=== PATIENT | male | born 1930 | race Caucasian/White ===

== ENCOUNTER 2020-01-04 16:18 | Emergency (ER) | payer MEDICARE, OTHER ==
[~2020-01-04] VITALS: Ht 180.3 cm; Wt 86.2 kg
[2020-01-04 19:35] VITALS: BP 150/71
[2020-01-04] MEDS ORDERED: TETANUS-DIPTH-ACEL PERTUSSIS 0.5ML SYRG IM ONE ×2 (19:42→19:45)
== END 2020-01-04 20:51 | disposition home or self-care (01) ==
LOC: ER 16:18
DX: S61.452A Open bite of left hand, initial encounter (principal); L03.114 Cellulitis of left upper limb; W54.0XXA Bitten by dog, initial encounter; Y93.89 Activity, other specified; Y92.89 Other specified places as the place of occurrence of the external cause; Y99.8 Other external cause status
CPT/HCPCS: 73130; 90471; 90715

== ENCOUNTER 2020-03-07 08:19 | Inpatient (IN) | payer MEDICARE, OTHER ==
[~2020-03-07] VITALS: Ht 177.8 cm; Wt 80.3 kg
[2020-03-07 08:55] LABS: Basophils # (auto) 0.1 10 ^3/uL (0-0.2); Basophils % (auto) 0.5 % (0.0-2.0); Eosinophils # (auto) 0 10 ^3/uL (0-0.8); Eosinophils % (auto) 0.1 % (0.0-7.0); Hematocrit 36.5 % (41.0-53.0); Hemoglobin 12.7 g/dL (13.5-17.5); Lymphocytes # (auto) 0.9 10 ^3/uL (0.4-5.4); Lymphocytes % (auto) 7.9 % (10.0-50.0); Mean Corpuscular Hemoglobin 31.6 pg (28.0-32.0); Mean Corpuscular Hgb Conc. 34.8 g/dL (32.0-36.0); Mean Corpuscular Volume 90.9 fL (80.0-100.0); Monocytes # (auto) 1.1 10 ^3/uL (0-1.3); Monocytes % (auto) 9.6 % (0.0-12.0); Neutrophils # (auto) 9.6 10 ^3/uL (1.6-8.6); Neutrophils % (auto) 81.9 % (37.0-80.0); Nucleated Red Blood Cells % 0.1 %; Platelet Count (auto) 203 10^3/uL (140-450); Red Blood Cells 4.02 10^6/uL (4.5-5.90); Red Cell Distribution Width 14.6 % (11.8-14.3); White Blood Cell 11.8 10^3/uL (4.4-10.8)
[2020-03-07 09:09] LABS: INR 1.04 (0.9-1.15)
[2020-03-07 09:23] LABS: Albumin 2.3 g/dL (3.4-5.0); BUN/Creatinine Ratio 16.7; Calcium 9.1 mg/dL (8.5-10.1); Potassium 3.4 mmol/L (3.5-5.1)
[2020-03-07 09:28] LABS: Bilirubin, Total 0.6 mg/dL (0.2-1.0); Total Protein 6.1 g/dL (6.4-8.2)
[2020-03-07 10:13] LABS: Urine Bacteria MANY /hpf (None Seen); Urine Blood 1+ /uL (Negative); Urine Mucus FEW (None Seen); Urine Specific Gravity 1.016 (1.001-1.035); Urine WBC 442 /hpf (0 - 3); Urine WBC Clumps PRESENT /hpf (None Seen)
[2020-03-07] MEDS ORDERED: FUROSEMIDE 20 MG/2 ML VIAL IV ONE (10:30)
[2020-03-07] MEDS ORDERED: cefTRIAXone 1GM/50ML D5W 50 ML IV ONE (10:30)
[2020-03-07] MEDS ORDERED: ACETAMINOPHEN 500 MG TAB PO PRN (11:45)
[2020-03-07] MEDS ORDERED: NITROGLYCERIN 0.4 MG SL TAB SL PRN (11:45)
[2020-03-07] MEDS ORDERED: MORPHINE SULF INJ 2 MG/ML SYRINGE 1ML IV PRN ×2 (11:45)
[2020-03-07] MEDS ORDERED: DEXTROSE (50%) 50ML SYRG IV PRN (11:45)
[2020-03-07] MEDS ORDERED: ONDANSETRON HCL 4 MG/2 ML VIAL IV PRN (11:45)
[2020-03-07] MEDS ORDERED: POTASSIUM EFFERVESENT TAB 25 MEQ PO ONE (12:15)
--- NOTE | 2020-03-07 12:48 | NUR ---
Telemetry admit from ER DAGOBERTO GONZALES admitted to Telemetry unit after SBAR received. Patient oriented to FANTA MAYO RN primary RN, unit, room, bed, and unit policies regarding patient care and visiting hours. Patient now on continuous telemetry monitoring, tele box # [id number] and telemetry reading on arrival to unit is AFIB. Patient placed on bedside oxygen, weighed by bedscale and encouraged to call if they need something. All questions and concerns addressed, patient verbalized understanding.
[2020-03-07 13:55] VITALS: BP 143/75
[2020-03-07] MEDS: metroNIDAZOLE 500MG/100ML 100 ML IV SCH ×2 (14:00→21:33)
[2020-03-07] MEDS: InsuLIN REG 1unit/0.01ml Soln (100units/ml) SC SCH ×2 (17:00→21:34)
[2020-03-07 17:23] VITALS: BP 110/54
--- NOTE | 2020-03-07 17:28 | NUR ---
PT REFUSING INSULIN PT REFUSING INSULIN AT THIS TIME LAST BLOOD GLUCOSE 218. PT EDUCATED ON IMPORTANCE OF MEDICATION COMPLIANCE AND BLOOD SUGAR CONTROL. PT VERBALIZED UNDERSTANDING AND STATES "I JUST DO NOT FEEL COMFORTABLE TAKING ANY TYPE OF INSULIN WHEN I DO NOT TAKE IT WHEN I AM AT HOME. MY BLOOD SUGAR IS NOT THAT HIGH FROM MY USUAL SO I JUST DONT WANT THE INSULIN THANK YOU."
[2020-03-07] MEDS: ACCU-CHEK COMFORT CURVE STRIP VI SCH ×2 (17:34→21:34)
[2020-03-07] MEDS: TAMSULOSIN HYDROCHLORIDE 0.4 MG CAP PO SCH (17:35)
[2020-03-07] MEDS: DOCUSATE SOD 100 MG CAP PO SCH (21:33)
[2020-03-07] MEDS: METOPROLOL TARTRATE 50 MG TAB PO SCH (21:34)
[2020-03-07] MEDS: HYDROcodone-ACET 5/325MG TAB PO PRN (21:35)
[2020-03-07 22:00] VITALS: BP 104/78
--- NOTE | 2020-03-08 04:20 | NUR ---
STARTED A NEW IV ACCESS ON THE LEFT FOREARM, GAUGE 22. BENIGN AND PATENT.
[2020-03-08 05:00] VITALS: BP 114/60
[2020-03-08] MEDS: metroNIDAZOLE 500MG/100ML 100 ML IV SCH ×3 (05:53→22:03)
[2020-03-08] MEDS: ACCU-CHEK COMFORT CURVE STRIP VI SCH ×4 (05:54→22:04)
[2020-03-08] MEDS: InsuLIN REG 1unit/0.01ml Soln (100units/ml) SC SCH ×4 (05:54→22:00)
[2020-03-08 05:56] LABS: Basophils # (auto) 0 10 ^3/uL (0-0.2); Basophils % (auto) 0.4 % (0.0-2.0); Eosinophils # (auto) 0.1 10 ^3/uL (0-0.8); Hematocrit 32.5 % (41.0-53.0); Hemoglobin 11.5 g/dL (13.5-17.5); Lymphocytes # (auto) 0.7 10 ^3/uL (0.4-5.4); Mean Corpuscular Hemoglobin 31.9 pg (28.0-32.0); Mean Corpuscular Hgb Conc. 35.3 g/dL (32.0-36.0); Mean Corpuscular Volume 90.5 fL (80.0-100.0); Monocytes # (auto) 0.9 10 ^3/uL (0-1.3); Monocytes % (auto) 10.9 % (0.0-12.0); Neutrophils # (auto) 6.5 10 ^3/uL (1.6-8.6); Neutrophils % (auto) 78.7 % (37.0-80.0); Nucleated Red Blood Cells % 0.1 %; Platelet Count (auto) 185 10^3/uL (140-450); Red Blood Cells 3.59 10^6/uL (4.5-5.90); Red Cell Distribution Width 14.8 % (11.8-14.3); White Blood Cell 8.3 10^3/uL (4.4-10.8)
[2020-03-08 06:14] LABS: BUN/Creatinine Ratio 18.7; Calcium 8.6 mg/dL (8.5-10.1); Potassium 3.4 mmol/L (3.5-5.1)
--- NOTE | 2020-03-08 08:00 | NUR ---
RECEIVED PATIENT ALERT AND ORIENTED X3, NOT IN DISTRESS, CLEAR LS IN BILATERAL UPPER AND DIMINISHED IN LOWER LUNG LOBES, RR=18 SAT=97%, DEEP BREATHING AND COUGHING WAS ENCOURAGED, DEMONSTRATED AND TOLERATED WELL, DENIED SOB AND CHEST PAIN, A FIB ON TELE MONITOR, HEART R=68, ABDOMEN SOFT WITH ACTIVE BS, LAST BM=03/07/20 REPORTED, TOLERATED PROVIDED BREAKFAST 75%, VALENTIN ACTH IN PLACE AND PATENT, DRAINING CLEAR YELLOW URINE, BILATERAL LOWER EXTREMITIES PITTING EDEMA 2+ NOTED, GENERAL SKIN INTACT WARM TO TOUCH, RADIAL AND PEDAL PULSES PALPABLE, RESTING ON BED AT THIS MOMENT, HEAD OF BED ELEVATED, BED ON LOW POSITION, RAILS UP X2, CALL LIGHT ON REACH, PENDING NEUROLOGY CONSULT, WILL CONTINUE MONITORING.
[2020-03-08 09:00] VITALS: BP 110/55
[2020-03-08] MEDS: DOCUSATE SOD 100 MG CAP PO SCH ×2 (09:06→22:03)
[2020-03-08] MEDS: cefTRIAXone 1GM/50ML D5W 50 ML IV SCH (09:06)
[2020-03-08] MEDS: ASPirin-EC 81 mg tab PO SCH (09:06)
[2020-03-08] MEDS: METOPROLOL TARTRATE 50 MG TAB PO SCH ×2 (09:07→22:04)
[2020-03-08] MEDS: FAMOTIDINE 20 MG TAB PO SCH (09:07)
--- NOTE | 2020-03-08 10:00 | NUR ---
OUT OF BED ENCOURAGED SAT ON A CHAIR 15 MINUTES CHRISTINE TO THE BED AND RESTING.
--- NOTE | 2020-03-08 12:00 | NUR ---
SM=[id number] REFUSED INSULIN COVERAGE, DR.REDY Baird WAS CALLED AND NOTIFIED, NOT IN DISTRESS, RESTING ON BED, WILL CONTINUE MONITORING.
[2020-03-08 13:00] VITALS: BP 107/64
[2020-03-08] MEDS: HYDROcodone-ACET 5/325MG TAB PO PRN ×2 (13:16→20:27)
--- NOTE | 2020-03-08 13:32 | NUR ---
TOLERATED BED SIDE COMMODE WITH ASSISTANCE, PENDING STOOL SAMPLE FOR C DIFF, NO BM NOTED, SAMPLE CONTAINER AT BED SIDE, SAMPLE EDUCATION PROVIDED, VERBALIZED UNDERSTANDING, WILL CONTINUE MONITORING.
[2020-03-08] MEDS ORDERED: metFORMIN HYDROCHLORIDE 500 MG TAB PO ONE (14:30)
[2020-03-08 16:58] VITALS: BP 110/64
[2020-03-08] MEDS ORDERED: ASPI-543 PO (17:26)
[2020-03-08] MEDS ORDERED: RAMI5CAP40 PO (17:28)
[2020-03-08] MEDS ORDERED: METO25TA36 PO (17:28)
[2020-03-08] MEDS ORDERED: LOSA25TA38 PO (17:29)
[2020-03-08] MEDS ORDERED: FINA5TAB4 PO (17:30)
[2020-03-08] MEDS ORDERED: TAMS1CAP25 PO (17:31)
[2020-03-08] MEDS ORDERED: PANT-36 PO (17:32)
[2020-03-08] MEDS ORDERED: LOPE2TAB99 PO ×2 (17:35→17:50)
[2020-03-08] MEDS ORDERED: MAGN400T40 PO (17:35)
[2020-03-08] MEDS ORDERED: MELA3TAB27 PO (17:35)
[2020-03-08] MEDS ORDERED: FERR-20 PO (17:35)
[2020-03-08] MEDS ORDERED: PIOG15TA23 PO (17:35)
[2020-03-08] MEDS ORDERED: ROSU10TA16 PO (17:35)
[2020-03-08] MEDS: TAMSULOSIN HYDROCHLORIDE 0.4 MG CAP PO SCH (17:45)
--- NOTE | 2020-03-08 18:05 | NUR ---
Out of bed and sitting on the chair eating dinner, KQ=580, refused insulin sliding scale coverage, Metformin PO x1 as ordered, will continue monitoring.
--- NOTE | 2020-03-08 19:00 | NUR ---
Opening Shift Note Assumed care of patient, awake and alert. No S/S of distress/SOB or pain. Instructed on POC and to call for assist PRN, will continue to monitor for changes Q1hr and PRN. patient in lowest possible position with call light within reach. Will continue to monitor.
--- NOTE | 2020-03-08 19:37 | NUR ---
REPORT WAS GIVEN TO THE COMMERCIAL CONSTRUCTION ESTIMATOR RN.
[2020-03-08 20:00] VITALS: BP 112/49
[2020-03-08 22:00] VITALS: BP 112/49
[2020-03-08] MEDS: metFORMIN HYDROCHLORIDE 500 MG TAB PO SCH (22:04)
--- NOTE | 2020-03-08 23:00 | NUR ---
Patient is confused, keeps getting up, almost pulled out [place] because he forgets where he is. patient will have a sitter to help orient and watch patient for safety.
--- NOTE | 2020-03-09 04:16 | NUR ---
Patient is agitated, patient stated that he wanted to go AMA, says that he is being held here and does not want to be here. Patient keeps getting angry with the sitter and staff. States that he will call 911. Told patient that he needs to finish his antibiotics and to finish his treatment plan before going home, stated that he can talk to his doctors about his concern in the morning. Patient got mad said he can leave and just come back so that he can get his own room. Told patient that would not be a good idea and that we can talk about moving rooms in the morning. Patient is still extremely agitated. Called MD for order to calm patient. Awaiting call back from MD. Will continue to monitor patient.
[2020-03-09] MEDS ORDERED: LORazepam 0.5 MG TAB PO PRN (05:30)
[2020-03-09] MEDS: metroNIDAZOLE 500MG/100ML 100 ML IV SCH ×3 (06:00→22:20)
[2020-03-09] MEDS: InsuLIN REG 1unit/0.01ml Soln (100units/ml) SC SCH ×5 (07:00→22:23)
[2020-03-09] MEDS: ACCU-CHEK COMFORT CURVE STRIP VI SCH ×4 (07:08→22:17)
[2020-03-09] MEDS ORDERED: PHENAZOPYRIDINE HCL 100 MG TAB PO SCH (08:00)
[2020-03-09] MEDS: DOCUSATE SOD 100 MG CAP PO SCH ×2 (10:00→22:20)
[2020-03-09 10:04] VITALS: BP 112/64
[2020-03-09] MEDS: cefTRIAXone 1GM/50ML D5W 50 ML IV SCH (10:08)
[2020-03-09] MEDS: ASPirin-EC 81 mg tab PO SCH (10:11)
[2020-03-09] MEDS: FAMOTIDINE 20 MG TAB PO SCH (10:11)
[2020-03-09] MEDS: METOPROLOL TARTRATE 50 MG TAB PO SCH ×2 (10:11→22:20)
[2020-03-09] MEDS: metFORMIN HYDROCHLORIDE 500 MG TAB PO SCH ×2 (10:12→22:19)
[2020-03-09 13:49] VITALS: BP 112/57
[2020-03-09] MEDS ORDERED: GOLYTELY 4L KIT PO ONE (14:00)
[2020-03-09 16:45] VITALS: BP 132/61
[2020-03-09] MEDS: TAMSULOSIN HYDROCHLORIDE 0.4 MG CAP PO SCH (17:11)
--- NOTE | 2020-03-09 20:38 | NUR ---
Opening Shift Note Assumed care of patient, awake and alert. No S/S of distress/SOB or pain. Instructed on POC and to call for assist PRN, will continue to monitor for changes Q1hr and PRN.
[2020-03-09 21:53] VITALS: BP 125/65
[2020-03-10 05:00] VITALS: BP 162/82
[2020-03-10] MEDS ORDERED: MAGNESIUM CITRATE SOLUTION 300 ML BTL PO ONE (06:00)
[2020-03-10] MEDS: metroNIDAZOLE 500MG/100ML 100 ML IV SCH ×3 (06:31→23:15)
[2020-03-10] MEDS: ACCU-CHEK COMFORT CURVE STRIP VI SCH ×4 (06:31→23:32)
--- NOTE | 2020-03-10 06:42 | NUR ---
Patient still taking the prescribed golytely for colonoscopy today. Said, he could not finish the gallon. Stool is yellow cloudy to clear. Blood sugar was 223 @ 2200 but REG insulin not given due to NPO except golytely @ [place]. Dr. Mars notified. No s/s of hypo or hyperglycemia noted or reported.
--- NOTE | 2020-03-10 07:25 | NUR ---
Opening Shift Note Assumed care of patient from noc shift rn, awake and alert. No S/S of distress/SOB or pain. Plan of care discussed, advised to call for assist PRN, will continue to monitor for changes Q1hr and PRN. Patient remains NPO at this time.
[2020-03-10 08:00] VITALS: BP 139/68
[2020-03-10] MEDS ORDERED: FLUMAZENIL 0.1 MG/ML INJ 10ML MDV IV ONE (08:44)
[2020-03-10] MEDS ORDERED: SODIUM CHLORIDE LOCK 10 ML ONE (08:44)
[2020-03-10] MEDS ORDERED: diphenhdrAMINE HCL 50 MG/1 ML VL ONE (08:44)
[2020-03-10] MEDS ORDERED: NALOXONE HCL 0.4 MG/ML VIAL ONE (08:44)
[2020-03-10] MEDS: cefTRIAXone 1GM/50ML D5W 50 ML IV SCH (08:52)
[2020-03-10 09:01] VITALS: BP 130/68
[2020-03-10] MEDS: ASPirin-EC 81 mg tab PO SCH (09:09)
[2020-03-10] MEDS: FAMOTIDINE 20 MG TAB PO SCH (09:09)
[2020-03-10] MEDS: METOPROLOL TARTRATE 50 MG TAB PO SCH ×2 (09:09→23:32)
[2020-03-10] MEDS: metFORMIN HYDROCHLORIDE 500 MG TAB PO SCH ×2 (09:12→18:32)
[2020-03-10] MEDS: DOCUSATE SOD 100 MG CAP PO SCH ×3 (09:12→23:13)
--- NOTE | 2020-03-10 11:00 | NUR ---
patient taken to pre-op for colonoscopy
--- NOTE | 2020-03-10 11:01 | NUR ---
Per Dr. Evens Kyle, will do double procedure, colonoscopy and endoscopy.
[2020-03-10] MEDS ORDERED: LIDOCAINE VISCOUS 2% 15ML UD ONE (11:16)
[2020-03-10] MEDS: fentaNYL CITRATE 100 MCG/2 ML VL ONE ×4 (11:20→11:34)
[2020-03-10] MEDS: MIDAZOLAM HCL 5 MG/ML-1ML VIAL ONE ×3 (11:20→11:35)
[2020-03-10] MEDS: InsuLIN REG 1unit/0.01ml Soln (100units/ml) SC SCH ×3 (11:30→22:00)
[2020-03-10 13:12] VITALS: BP 123/65
[2020-03-10] MEDS: MESALAMINE 400mg Delayed Release Cap PO SCH ×2 (14:09→23:16)
[2020-03-10] MEDS: methylPREDNISolone SOD SUCC 40 MG/ML VL IV SCH ×2 (14:09→23:14)
--- NOTE | 2020-03-10 14:46 | NUR ---
assessment Patient is a 89 year old male who is alert and oriented. Prior to admission patient lived home with family and functioned with assistance. Per patient he will return home to his prior living arrangements post discharge and family will transport him home. Patient has a fww and a rollator for home use. Patients PCP is Dr Valiente. Patient informed me he is on service with [facility]. Patient will need a resumption order on discharge. Patient informed me he has a caregiver 3 hours per day. Patient feels safe returning home on discharge. I informed patient he has a right to speak to a social and human services assistant regarding all care. I informed patient he has a right to participate in any and all discharge planning. Patient has a POA and advanced directive. Patient verbalized understanding and agreed to discharge plan. Addendum: 03/10/20 at 1502 by Angelica CHAO Amended: Links added.
[2020-03-10 17:12] VITALS: BP 139/64
[2020-03-10] MEDS: TAMSULOSIN HYDROCHLORIDE 0.4 MG CAP PO SCH (18:33)
[2020-03-10 22:00] VITALS: BP 130/67
[2020-03-10] MEDS ORDERED: ATORVASTATIN 20 MG TAB PO SCH (22:00)
[2020-03-11 04:33] VITALS: BP 120/58
[2020-03-11] MEDS: metroNIDAZOLE 500MG/100ML 100 ML IV SCH (06:09)
[2020-03-11] MEDS: methylPREDNISolone SOD SUCC 40 MG/ML VL IV SCH (06:09)
[2020-03-11] MEDS: ACCU-CHEK COMFORT CURVE STRIP VI SCH ×2 (06:59→11:30)
[2020-03-11] MEDS: InsuLIN REG 1unit/0.01ml Soln (100units/ml) SC SCH ×2 (06:59→11:30)
[2020-03-11] MEDS: MESALAMINE 400mg Delayed Release Cap PO SCH (07:24)
--- NOTE | 2020-03-11 07:30 | NUR ---
Opening Shift Note Assuming care of patient at this time. Patient is awake and alert. Patient denies pain. Bed is locked and lowered with side rails up x2. Instructed patient on the plan of care for today and to call for assistance as needed. Call light within reach. Will continue to round hourly and as needed. Sitter at bedside for safety. However, patient does not appear to be agitated, confused, or trying to get out of bed.
[2020-03-11 09:00] VITALS: BP 130/70
[2020-03-11] MEDS: ASPirin-EC 81 mg tab PO SCH (09:38)
[2020-03-11] MEDS: metFORMIN HYDROCHLORIDE 500 MG TAB PO SCH (09:39)
[2020-03-11] MEDS: DOCUSATE SOD 100 MG CAP PO SCH (09:39)
[2020-03-11] MEDS: FAMOTIDINE 20 MG TAB PO SCH (09:39)
[2020-03-11] MEDS: METOPROLOL TARTRATE 50 MG TAB PO SCH (09:40)
[2020-03-11] MEDS: cefTRIAXone 1GM/50ML D5W 50 ML IV SCH (09:41)
--- NOTE | 2020-03-11 10:30 | NUR ---
at bedside Dr. Walters at bedside discussing plan of care with patient and this RN. Sitter at bedside.
--- NOTE | 2020-03-11 10:41 | NUR ---
Page to Director Sales Support Page to on-call [employer] school social [employer] teacher to resume patient's home health.
[2020-03-11 12:02] VITALS: BP 130/70
--- NOTE | 2020-03-11 12:53 | NUR ---
EEG- PATIENT REFUSED ELECTROENCEPHALOGRAM.
--- NOTE | 2020-03-11 13:00 | NUR ---
Leg Bag Mac converted to leg bag at this time. Patient instructed on how to empty mac catheter and patient aware to call urology and follow-up with Dr. Logan. Patient given information to follow-up.
--- NOTE | 2020-03-11 13:23 | NUR ---
Discharge Discharge instructions given as ordered. Encourage to follow up with PMD as instructed. Patient also given information to follow-up with urology, neurology, and GI. All questions and concerns addressed. Patient verbalized understanding. Medication reconciliation form completed and copy given to patient. IV removed with catheter intact, pressure dressing applied, mac catheter converted to leg bag. Telemetry unit returned to ICU. Patient taken to vehicle via wheelchair with all personal belongings, accompanied by staff members. Daughter in lobby to pick-up patient. Patient assisted to vehicle. Walker placed in vehicle's trunk. No distress noted at time of departure.
--- NOTE | 2020-03-13 09:48 | NUR ---
Weekend visualization developer 03/11/20 I received a page from nurse Gandhi letting me know that this patient has order to resume home health with [facility]. I asked nurse Gandhi to fax the face sheet, order and H&P to [facility]. I spoke with Alley at [facility], she verified that they will be able to accept this patient back-she will contact him regarding start date.
== END 2020-03-11 13:20 | disposition home or self-care (01) | DRG 871 ==
LOC: EDBD 08:19 → ER 08:19 → TELE-WESTW 08:20
PROVIDERS: ADMIT Nurse Practitioner Acute Care; ATTEND Family Medicine
PROC: 0DBN8ZX Excision of Sigmoid Colon, Via Natural or Artificial Opening Endoscopic, Diagnostic (ICD-10-PCS; 2020-03-10)
PROC: 0DB68ZX Excision of Stomach, Via Natural or Artificial Opening Endoscopic, Diagnostic (ICD-10-PCS; principal; 2020-03-10 11:14)
PROC: 0DB88ZX Excision of Small Intestine, Via Natural or Artificial Opening Endoscopic, Diagnostic (ICD-10-PCS; 2020-03-10 11:14)
DX: A41.9 Sepsis, unspecified organism (principal); I50.43 Acute on chronic combined systolic (congestive) and diastolic (congestive) heart failure; N17.0 Acute kidney failure with tubular necrosis; G93.41 Metabolic encephalopathy; I62.03 Nontraumatic chronic subdural hemorrhage; N39.0 Urinary tract infection, site not specified; E44.0 Moderate protein-calorie malnutrition; I13.0 Hypertensive heart and chronic kidney disease with heart failure and stage 1 through stage 4 chronic kidney disease, or unspecified chronic kidney disease; N40.0 Benign prostatic hyperplasia without lower urinary tract symptoms; I49.8 Other specified cardiac arrhythmias; I49.3 Ventricular premature depolarization; D64.9 Anemia, unspecified; I25.10 Atherosclerotic heart disease of native coronary artery without angina pectoris; E87.6 Hypokalemia; I48.91 Unspecified atrial fibrillation; K57.30 Diverticulosis of large intestine without perforation or abscess without bleeding; K29.70 Gastritis, unspecified, without bleeding; K63.5 Polyp of colon; K64.8 Other hemorrhoids; K52.9 Noninfective gastroenteritis and colitis, unspecified; E11.40 Type 2 diabetes mellitus with diabetic neuropathy, unspecified; N18.3 Chronic kidney disease, stage 3 (moderate); Z88.2 Allergy status to sulfonamides; I25.2 Old myocardial infarction; Z95.1 Presence of aortocoronary bypass graft; B96.20 Unspecified Escherichia coli [E. coli] as the cause of diseases classified elsewhere; E86.0 Dehydration
CPT/HCPCS: 36415; 43239; 45380; 51702; 70450; 71045; 74176; 80048; 80053; 81001; 82270; 82962; 83880; 84484; 85025; 85048; 85610; 85730; 87040; 87045; 87086; 87088; 87186; 87427; 87493; 93005; 93306; 96365; 97163; G0378; J0696; J1815; J2250; J3490